=== PATIENT | male | born 1990 | race African-American/Black ===

== ENCOUNTER 2022-10-10 15:40 | Inpatient (IN) | payer OTHER ==
[2022-10-10 16:21] VITALS: BMI 18.0
[2022-10-10] MEDS ORDERED: MAG HYDROX/AL HYDROX/SIMETH 30 ML UNIT-DOSE CUP PO PRN (16:37)
[2022-10-10] MEDS ORDERED: METHOCARBAMOL 500 MG TABLET PO PRN (16:37)
[2022-10-10] MEDS ORDERED: MAGNESIUM HYDROX 2400MG/30ML ORAL SUSPENSION 30 ML CUP PO PRN (16:37)
[2022-10-10] MEDS ORDERED: DICYCLOMINE HCL 10 MG CAPSULE PO PRN (16:37)
[2022-10-10] MEDS ORDERED: BENZONATATE 200 MG CAPSULE PO PRN (16:37)
[2022-10-10] MEDS ORDERED: POLYETHYLENE GLYCOL (HEALTHYLAX) 3350 17 GM PACKET PO PRN (16:37)
[2022-10-10] MEDS ORDERED: IBUPROFEN 400 MG TABLET (FP) PO PRN (16:37)
[2022-10-10] MEDS ORDERED: guaiFENesin 600 MG TABLET.ER (FP) PO PRN (16:37)
[2022-10-10] MEDS ORDERED: ACETAMINOPHEN 325 MG TABLET (FP) PO PRN (16:37)
[2022-10-10] MEDS ORDERED: NALOXONE HCL 0.4 MG/ML VIAL IM PRN (16:37)
[2022-10-10] MEDS ORDERED: LOPERAMIDE HCL 2 MG CAPSULE PO PRN (16:37)
[2022-10-10] MEDS ORDERED: IBUPROFEN 600 MG TABLET (FP) PO PRN (16:37)
[2022-10-10] MEDS ORDERED: NICOTINE POLACRILEX 2 MG GUM BUC PRN (16:37)
[2022-10-10] MEDS ORDERED: NALOXONE HCL (KLOXXADO) 8 MG SPRAY NS PRN (16:37)
[2022-10-10] MEDS ORDERED: BISMUTH SUBSALICYLATE 524 MG/30 ML PO PRN (16:37)
[2022-10-10] MEDS ORDERED: hydrOXYzine PAMOATE 25 MG CAPSULE (FP) PO PRN (16:37)
[2022-10-10] MEDS ORDERED: BENZOCAINE/MENTHOL (CHLORASEPTIC ) LOZENGE MM PRN (16:37)
[2022-10-10] MEDS ORDERED: chlordiazePOXIDE HCL 25 MG CAPSULE PO PRN (16:37)
[2022-10-10] MEDS ORDERED: NICOTINE 10 MG CARTRIDGE (INHALER) IH PRN (16:37)
[2022-10-10] MEDS ORDERED: ONDANSETRON *ODT* 4 MG TABLET SL PRN (16:37)
[2022-10-10] MEDS ORDERED: NICOTINE 14 MG/24 HOURS TOPICAL PATCH TD ONE (17:33)
[2022-10-10] MEDS ORDERED: chlordiazePOXIDE HCL 25 MG CAPSULE ONE (17:33)
[2022-10-10] MEDS ORDERED: PRENATAL VITAMINS W/ FOLIC ACID TABLET (FP) PO ONE (17:33)
[2022-10-10] MEDS: NICOTINE 14 MG/24 HOURS TOPICAL PATCH TD SCH (17:39)
[2022-10-10] MEDS: PRENATAL VITAMINS W/ FOLIC ACID TABLET (FP) PO SCH (17:40)
[2022-10-10] MEDS: chlordiazePOXIDE HCL 25 MG CAPSULE PO SCH ×2 (17:40→22:42)
[2022-10-10] MEDS ORDERED: MELATONIN 5 MG TABLETS PO SCH (22:00)
[2022-10-10] MEDS ORDERED: THIAMINE HCL 100 MG TABLET (FP) PO SCH (22:00)
[2022-10-11] MEDS: chlordiazePOXIDE HCL 25 MG CAPSULE PO SCH ×2 (06:00→10:32)
[2022-10-11 09:30] VITALS: BP 105/64; PULSE 56; RESP 18; TEMP 98
[2022-10-11] MEDS: NICOTINE 14 MG/24 HOURS TOPICAL PATCH TD SCH (10:28)
[2022-10-11] MEDS: PRENATAL VITAMINS W/ FOLIC ACID TABLET (FP) PO SCH (10:29)
[2022-10-11 12:03] LABS: HEMATOCRIT 39.2 % (35.4-49); HEMOGLOBIN 13.2 GM/dL (11.7-16.9); MCH 28.9 pg (25.7-33.7); MCHC 33.7 g/dl (32.0-35.9); MEAN CELL VOLUME 85.9 fl (80-96); MEAN PLT VOLUME 9.5 fl (7.5-11.1); PLATELET COUNT 132 10^3/uL (134-434); RBC 4.56 M/mm3 (4.00-5.60); WHITE BLOOD COUNT 3.5 K/mm3 (4.0-10.0)
[2022-10-11 12:24] LABS: CALCIUM 8.8 mg/dL (8.5-10.1)
[2022-10-11 12:25] LABS: ALBUMIN 3.3 g/dl (3.4-5.0)
[2022-10-11 12:28] LABS: CREATININE 1.1 mg/dL (0.55-1.3)
[2022-10-11 12:29] LABS: TOT PROT 6.5 g/dl (6.4-8.2)
[2022-10-11 12:30] LABS: BILIRUBIN,TOTAL 0.5 mg/dL (0.2-1)
[2022-10-12] MEDS ORDERED: chlordiazePOXIDE HCL 25 MG CAPSULE PO SCH (05:00)
[2022-10-13] MEDS ORDERED: chlordiazePOXIDE HCL 10 MG CAPSULE PO PRN
[2022-10-13] MEDS ORDERED: chlordiazePOXIDE HCL 10 MG CAPSULE PO SCH (05:00)
[2022-10-14] MEDS ORDERED: chlordiazePOXIDE HCL 10 MG CAPSULE PO SCH (05:00)
[2022-10-15] MEDS ORDERED: chlordiazePOXIDE HCL 10 MG CAPSULE PO ONE (05:00)
== END 2022-10-11 12:03 | disposition left against medical advice (07) | DRG 770 ==
LOC: YASAS 15:40 → Y6N 17:24
PROVIDERS: ADMIT Allergy & Immunology; ATTEND Surgery
PROC: HZ2ZZZZ Detoxification Services for Substance Abuse Treatment (ICD-10-PCS; principal; 2022-10-10)
DX: F10.230 Alcohol dependence with withdrawal, uncomplicated (principal); F14.20 Cocaine dependence, uncomplicated; F12.20 Cannabis dependence, uncomplicated; F17.210 Nicotine dependence, cigarettes, uncomplicated; F43.10 Post-traumatic stress disorder, unspecified; F32.A Depression, unspecified; F41.9 Anxiety disorder, unspecified; B20 Human immunodeficiency virus [HIV] disease; G80.9 Cerebral palsy, unspecified; Z79.899 Other long term (current) drug therapy
CPT/HCPCS: 36415; 80053; 85027; 86593; 86780; 87811; 93005; 93010; C9803-CS; U0003; U0005